=== PATIENT | male | born 1990 | race Caucasian/White ===

== ENCOUNTER 2023-01-01 15:07 | Emergency (ER) | payer BC, SELFPAY ==
[2023-01-01 15:32] VITALS: BP 135/73; PULSE 72; RESP 16; TEMP 36.2; O2SAT 98
--- NOTE | 2023-01-01 16:44 | ED.GIBLEED ---
HPI - GI Bleed General Chief complaint: GI Bleed Stated complaint: hemorrhoid issue Time Seen by Provider: 01/01/23 16:12 History of Present Illness HPI Narrative: This is a 32-year-old male who presents to the emergency department complaining of pain with bowel movements and bright red blood per rectum for the past several months. He states 2 days ago, he had a more painful bowel movement with an increased amount of bright red blood that is since stopped. He complains of mild dull pain with sitting. He has no other complaints today. Related Data Allergies Allergy/AdvReac Type Severity Reaction Status Date / Time Penicillins Allergy Unknown Verified 01/01/23 15:48 Review of Systems Review of Systems: CONSTITUTIONAL: Denies fever, chills, or sweats. CARDIOVASCULAR: Denies chest pain, palpitations, or edema. RESPIRATORY: Denies cough or dyspnea. GASTROINTESTINAL: Bright red blood per rectum denies abdominal pain, nausea, vomiting, or diarrhea. GENITOURINARY: Denies dysuria or hematuria. SKIN: Denies rash or itching. MUSCULOSKELETAL: Denies back pain, joint pain, or myalgia. NEUROLOGIC: Denies headache, numbness, dizziness, or weakness. PSYCHIATRIC: Denies anxiety or depression. PMFSH Past Medical History Medical History (Updated 01/01/23 @ 16:55 by Marino Pak MD) No significant past medical history Surgical History Surgical History (Updated 01/01/23 @ 16:55 by Marino Pak MD) No significant past surgical history Social History Social History (Updated 01/01/23 @ 16:55 by Marino Pak MD) Smoking status: Never smoker Alcohol intake: current Substance use: never Exam Narrative: GENERAL: Well-developed, well-nourished, and in no acute distress. HEAD: Normocephalic, atraumatic. EYES: PERRLA and EOMI. CHEST: Clear to auscultation. No respiratory distress. No wheezes rales or rhonchi HEART: Regular rate and rhythm. No murmur heard. Normal peripheral pulses. ABDOMEN: Soft, nontender, nondistended, normal active bowel sounds. RECTAL: External hemorrhoid noted at the 9 o'clock position without erythema, induration or active bleeding EXTREMITIES: Normal range of motion. No edema. SKIN: Warm, dry, no rash. NEURO: No focal deficits. Alert and oriented x3. PSYCH: Normal mood and affect. Course Course Emergency Course: 16:55 - Exam consistent with external hemorrhoids. I suspect this is the cause of the patient's pain and bleeding. Will discharge with topical hydrocortisone and lidocaine. Recommended primary care follow-up. Discussed return and emergency precautions including signs/symptoms of symptomatic anemia and acute abdomen. The patient voiced understanding and is comfortable with the plan. All questions answered to his satisfaction. Vital Signs Vital signs: Vital Signs Temperature 97.2 F L 01/01/23 15:32 Pulse Rate 72 01/01/23 15:32 Respiratory Rate 16 01/01/23 15:32 Blood Pressure 135/73 01/01/23 15:32 Pulse Oximetry 98 01/01/23 15:32 Temperature 97.2 F L 01/01/23 15:32 Pulse Rate 72 01/01/23 15:32 Respiratory Rate 16 01/01/23 15:32 Blood Pressure 135/73 01/01/23 15:32 Pulse Oximetry 98 01/01/23 15:32 MDM - GI Bleed MDM Narrative Medical decision making narrative: Plan: Exam, pain control, primary care follow-up Differential Diagnosis Differential diagnosis: Likely hemorrhoids, anal fissure and other Discharge Plan Discharge Clinical Impression: External hemorrhoid, bleeding, BRBPR (bright red blood per rectum) Patient Disposition: Home, Self-Care Condition: Stable Instructions: Antibiotic Form, Hemorrhoids (ED) Additional Instructions: You were seen in the emergency department. Your exam is consistent with hemorrhoids. If you develop severe abdominal pain with fevers, persistent vomiting, significant bleeding with lightheadedness, or if you have other emergent concerns for life, limb, or eyesight,
[2023-01-01 17:33] VITALS: BP 128/68; PULSE 80; RESP 16; O2SAT 99
== END 2023-01-01 17:33 | disposition home or self-care (01) ==
PROVIDERS: Emergency Provider Preventive Medicine Aerospace Medicine
DX: K64.4 Residual hemorrhoidal skin tags (principal); K62.5 Hemorrhage of anus and rectum
CPT/HCPCS: 99283